=== PATIENT | female | born 1965 | race Hispanic/Latino ===

== ENCOUNTER → 2018-06-11 | Day surgery (SDC) | payer OTHER ==
[~2018-06-11] MED LIST: COMBI TOP; FENTANYL CITRATE/PF 100MCG/2 ML INJ ONE; HYOSCYAMINE SULFATE 0.5 MG/ML INJ ONE; LIDOCAINE HCL 2% LOCAL INJ 5 ML SDV VIAL INJ ONE; LOSARTAN POTAS100 MG PO; MAGNESIUM PO; METFORMIN HCL500 MG PO; MIDAZOLAM HCL 2 MG/2 ML VIAL ONE; POTASSIUM PO; PROPOFOL IV EMULSION 10 MG/ML 50 ML VIAL ONE; VITAMIN C PO
[2018-06-11 11:58] LABS: WBC,FECAL (FECAL LACTOFERRIN) POSITIVE (NEGATIVE)
--- NOTE | 2018-06-11 13:11 | Operative Report ---
DATE OF PROCEDURE: June 11, 2018 REFERRING PHYSICIAN: Dr. Vinay Stauffer. PROCEDURE PERFORMED: Colonoscopy with polypectomy and biopsies. INDICATIONS FOR COLONOSCOPY: History of ulcerated ascending colon, history of colon polyps. Colonoscopy is being carried out to re-evaluate the ascending colon. MEDICATION: Patient was done under MAC. Please see anesthesiologist's note. PROCEDURE: With the patient in left lateral decubitus position, a flexible fiberoptic Olympus colonoscope was inserted into the rectum with ease and advanced all the way to the cecum. Mucosa overlying the cecum appeared to be within normal limits. The ileocecal valve was intubated and the scope was advanced into the terminal ileum. Biopsies were obtained. The scope was then withdrawn back into the colon. Some clusters of aphthous ulcers were noted in the ascending colon and biopsies were obtained. The rest of the ascending colon grossly appeared to be within normal limits as well as the transverse colon and the descending colon other than for diverticular disease. Three polyps were hot biopsied, one polyp was snared from the sigmoid colon. The rectosigmoid and the rectum were diffusely ulcerated and biopsies were obtained. The scope was then retroflexed into the distal rectum and small internal hemorrhoids were noted, none of which was actively bleeding. The scope was then straightened out and was subsequently withdrawn after securing an adequate stool specimen that was sent for the appropriate stool studies. Patient tolerated the procedure well. IMPRESSION 1. Cluster of aphthous ulcers ascending colon, biopsied. 2. Diverticulosis. 3. Sigmoid colon polyps x4, one snared and 3 hot biopsied. 4. Ulcerative proctitis, biopsies obtained. 5. Internal hemorrhoids, none actively bleeding. PLAN: Follow up histology. Follow up stool studies. Check IBD panel, CRP, and sed rate. Start Canasa suppositories 1000 mg q.h.s. and patient might benefit from a followup colonoscopy in 3 years. Job#: [id number] TORI cc:VINAY STAUFFER MD
[2018-06-11 14:25] LABS: C DIFFICILE TOXIN A&B AMP PROB NEGATIVE (NEGATIVE)
== END | disposition home or self-care (01) ==
LOC: ENDO 08:17
PROVIDERS: ATTEND Internal Medicine Gastroenterology
DX: Z12.11 Encounter for screening for malignant neoplasm of colon (principal); Z86.010 Personal history of colon polyps; I10 Essential (primary) hypertension; E11.9 Type 2 diabetes mellitus without complications; K57.30 Diverticulosis of large intestine without perforation or abscess without bleeding; K51.20 Ulcerative (chronic) proctitis without complications; K64.8 Other hemorrhoids; D12.5 Benign neoplasm of sigmoid colon; Z01.810 Encounter for preprocedural cardiovascular examination; Z01.812 Encounter for preprocedural laboratory examination; Z79.84 Long term (current) use of oral hypoglycemic drugs
CPT/HCPCS: 36415; 45384; 82948; 83630; 83993; 84702; 85651; 86140; 86256; 86671; 87045; 87177; 87328; 87493; 93005; J1980; J2001; J2250; 45385